=== PATIENT | female | born 1955 | race Hispanic/Latino ===

== ENCOUNTER 2022-01-27 15:18 | Emergency (ER) | payer SELFPAY ==
--- NOTE | ~2022-01-27 | CT_ITS ---
EXAMINATION: CT abdomen pelvis w con DATE: 01/27/2022 20:18 INDICATION: constipation, ab pain TECHNIQUE: Computed tomography (CT) of the abdomen and pelvis was performed with 100 mL Omnipaque-300 intravenous contrast. Automated exposure control and iterative reconstruction technique were employe d. The dose-length product was 560.07 mGy-cm. COMPARISON: None FINDINGS: Lower thorax: Senescent lung changes Liver: Normal. Biliary/Gallbladder: Cholelithiasis. No bile duct dilation. Spleen: Splenic cysts. Pancreas: No mass or duct dilation. Adrenals:Indeterminate 15 mm left adrenal mass. Kidneys: Left cortical cyst. Right pelvic cyst. No stone or hydronephrosis. GI tract: Marked gastric antral wall edema with a focal luminal outpouching and surrounding inflammat ory change. No large or small bowel dilation. Appendix not visualized. Mesentery/Peritoneum: No ascites, mass, or free air. Retroperitoneum: No mass. Pelvis: Pelvic organs are within normal limits. Soft Tissues: Soft tissues and body wall unremarkable. Bones: No acute osseous finding. IMPRESSION: Antral gastric ulcer with significant surrounding inflammatory change. No CT evidence of perforation. Indeterminate left adrenal mass, recommend nonemergent outpatient CT or MR with adrenal mass protoco l for further characterization. Reviewed, dictated and finalized at location K. IMPRESSION: Antral gastric ulcer with significant surrounding inflammatory change. No CT ev idence of perforation. Indeterminate left adrenal mass, recommend nonemergent o utpatient CT or MR with adrenal mass protocol for further characterization.
[2022-01-27 16:19] VITALS: BP 122/78; PULSE 80; RESP 16; TEMP 36.6; O2SAT 99
[2022-01-27 19:15] VITALS: BP 132/70; PULSE 84; RESP 16; O2SAT 99
--- NOTE | 2022-01-27 19:33 | PC.NURSE ---
pt to be seen for abd pain, low back pain. pt has not had a BM in 9 days. pt also c/o abd distention, notes that she had some N/V. pt denied previous abd dx
[2022-01-27 19:54] LABS: Basophils Absolute Auto 0.1 K/mm3 (0.0-0.1); Basophils Percent Auto 1.1 % (0.2-1.2); Eosinophils Absolute Auto 0.1 K/mm3 (0-0.3); Eosinophils Percent Auto 1.1 % (0-4.4); Hematocrit 29.6 % (37.0-47.0); Hemoglobin 7.7 g/dL (12.0-15.0); Immature Granulocyte Absolute 0.02 K/mm3 (0.00-0.031); Immature Granulocyte Percent A 0.2 % (0-0.5); Lymphocytes Absolute Auto 3.01 K/mm3 (0.9-3.2); Lymphocytes Percent Auto 31.5 % (18.3-44.2); Mean Corpuscular Hemoglobin 15.2 pg (26-34); Mean Corpuscular Volume 58.3 fl (80-100); Mean Platelet Volume 8.8 fl (7.4-10.4); Monocytes Absolute Auto 0.6 K/mm3 (0.1-0.6); Monocytes Percent Auto 6.4 % (2.6-8.5); Neutrophils Absolute Auto 5.7 K/mm3 (1.3-6.7); Neutrophils Percent Auto 59.7 % (45.5-73.1); Platelet Count Result 467 k/mm3 (150-375); Red Blood Count 5.08 M/mm3 (4.2-5.4); Red Cell Distribution Width 20.2 % (11.5-14.5); White Blood Count 9.6 K/mm3 (4.5-10.0)
[2022-01-27 20:05] LABS: Estimated CRCL calculation 43 ml/min; Estimated Glomerular Filt Rate > 60
[2022-01-27 20:08] LABS: Alanine Aminotransferase 15 U/L (6-35); Albumin Level 4.9 g/dL (3.5-5.1); Alkaline Phosphatase 102 U/L (38-126); Anion Gap 9 mmol/L (8-16); Aspartate Amino Transferase 36 U/L (14-36); Bilirubin,Total 0.2 mg/dL (0.2-1.3); Blood Urea Nitrogen 16 mg/dL (7-17); Calcium 9.3 mg/dL (8.4-10.2); Carbon Dioxide 30 mmol/L (22-30); Chloride 98 mmol/L (98-107); Estimated CRCL calculation 43 ml/min; Estimated Glomerular Filt Rate > 60; Glucose 105 mg/dL (65-110); Lipase 229 U/L (23-300); Potassium 3.6 mmol/L (3.4-5.0); Sodium 137 mmol/L (137-145)
[2022-01-27 20:24] LABS: Anisocytosis 3+ (NORMAL); Hypochromasia 1+ (NORMAL); Platelet Estimate Increased (Adequate)
--- NOTE | 2022-01-27 21:22 | ED.GENADULT ---
HPI - General Adult General Chief complaint: Unspecified Stated complaint: constipation Time Seen by Provider: 01/27/22 19:36 History of Present Illness HPI narrative: 66-year-old female present to the emergency department for evaluation of stomach pain that been ongoing since Thursday. Patient did have follow-up with her primary care physician and was recommended to take medications for constipation. Patient has been taking a laxative but states she is still having the upper abdominal pain. Patient states she has had some episodes of nausea and vomiting but denies any blood in her emesis. Patient states she has not been passing any blood in her stool. Patient states that she has no prior history of gastritis or ulcer. Patient states she has had a colonoscopy but has not had recent follow-up with GI. Related Data Allergies Allergy/AdvReac Type Severity Reaction Status Date / Time No Known Allergies Allergy Verified 01/27/22 16:25 Review of Systems Review of Systems: CONSTITUTIONAL: Denies fever, chills, or sweats. EYES: Denies visual changes, redness, or discharge. ENT: Denies rhinorrhea, congestion, sore throat, or otalgia. CARDIOVASCULAR: Denies chest pain, palpitations, or edema. RESPIRATORY: Denies cough or dyspnea. GASTROINTESTINAL: Upper abdominal pain GENITOURINARY: Denies dysuria or hematuria. SKIN: Denies rash or itching. MUSCULOSKELETAL: Denies back pain, joint pain, or myalgia. NEUROLOGIC: Denies headache, numbness, or weakness. Exam Narrative: APPEARANCE: Well appearing, no pain, no distress, well-nourished. HEAD: normocephalic, atraumatic. EYES: PERRLA/EOMI, conjunctivae clear. NOSE: Normal no drainage NECK: Supple. No adenopathy, no masses. RESPIRATORY: Airway patent, respirations nonlabored. Clear to auscultation bilaterally, no rales, rhonchi, wheezing. CARDIOVASCULAR: Regular rate and rhythm without murmurs rubs or gallops. ABDOMINAL: Epigastric tenderness to palpation normal bowel sounds, Hemoccult negative MUSCULOSKELETAL: Moves all extremities. Strength/ROM intact, No edema, No calf tenderness. NEURO: Alert. Cranial nerves II through XII intact. Good gait. Good coordination SKIN: Warm, dry. Normal Color PSYCHIATRIC: Normal affect/mood. Course Course Emergency Course: Patient denies any active bleeding. Hemoccult was negative. Patient was updated on the plan for treatment and the importance of close follow-up with her primary care physician. Patient was treated with Protonix in the emergency department and discharged with omeprazole. Patient was encouraged to have close follow-up with GI. Patient was also informed on the importance of close follow-up for the other CT findings. Vital Signs Vital signs: Vital Signs Temperature 97.9 F 01/27/22 16:19 Pulse Rate 80 01/27/22 16:19 Respiratory Rate 16 01/27/22 16:19 Blood Pressure 122/78 01/27/22 16:19 Pulse Oximetry 99 01/27/22 16:19 Temperature 97.9 F 01/27/22 16:19 Pulse Rate 78 01/27/22 23:33 Respiratory Rate 17 01/27/22 23:33 Blood Pressure 122/78 01/27/22 23:33 Pulse Oximetry 100 01/27/22 23:33 Medical Decision Making Vital Signs Vital Signs: Vital Signs Temperature 97.9 F 01/27/22 16:19 Pulse Rate 80 01/27/22 16:19 Respiratory Rate 16 01/27/22 16:19 Blood Pressure 122/78 01/27/22 16:19 Pulse Oximetry 99 01/27/22 16:19 Temperature 97.9 F 01/27/22 16:19 Pulse Rate 78 01/27/22 23:33 Respiratory Rate 17 01/27/22 23:33 Blood Pressure 122/78 01/27/22 23:33 Pulse Oximetry 100 01/27/22 23:33 Lab Data Lab results reviewed: Yes I reviewed the patient's lab results. Result diagrams: 01/27/22 19:49 01/27/22 20:01 Labs: Lab Results 01/27/22 01/27/22 01/27/22 Range/Units 19:49 19:49 20:01 WBC 9.6 (4.5-10.0) K/mm3 RBC 5.08 (4.2-5.4) M/mm3 Hgb 7.7 L (12.0-15.0) g/dL Hct 29.6 L (37.0-47.0) % MCV 58.3 L (80-100) fl
[2022-01-27 21:32] LABS: Appearance Urine Clear (Clear); Bilirubin Urine Negative (Negative); Blood Urine Negative (Negative); Color Urine Yellow (Yellow); Glucose Urine UA Negative (Negative); Ketones Urine Negative (Negative); Leukocyte Esterase Ur Negative LEU/UL (Negative); Nitrate Urine Negative (Negative); Protein Urine Negative (Negative); Urobilinogen Urine 0.2 mg/dL (<2.0)
[2022-01-27 21:33] LABS: Add Urine Microscopic? NO
[2022-01-27] MEDS: PANTOPRAZOLE SODIUM IV 40 MG VIAL IV PUSH (22:22)
[2022-01-27] MEDS: ONDANSETRON INJ 4 MG/2 ML VIAL IV PUSH (22:22)
[2022-01-27] MEDS: BELLADONNA ALK/PHENOB ELIX 10 ML, MAG HYDROX/ALUMINUM HYD/SIMETH 30 ML, LIDOCAINE HCL 2... PO (22:23)
[2022-01-27 23:33] VITALS: BP 122/78; PULSE 78; RESP 17; O2SAT 100
== END 2022-01-27 23:34 | disposition home or self-care (01) ==
PROVIDERS: Emergency Provider Emergency Medicine
DX: K25.3 Acute gastric ulcer without hemorrhage or perforation (principal)
CPT/HCPCS: 36415; 74177; 80053; 81003; 83690; 85025; 96374; 96375; 99284; A9270; C9113; J2405; Q9967